=== PATIENT | female | born 1965 | race African-American/Black ===

== ENCOUNTER 2017-09-22 23:01 | Emergency (ER) | payer MEDICAID ==
--- NOTE | 2017-09-23 00:46 | ER Document Report ---
ED General - General Chief Complaint: Shortness Of Breath Stated Complaint: ITCHING Time Seen by Provider: 09/23/17 00:45 Notes: Patient is a 51-year-old female presents with complaint of itching. She has been itching all over now for several days. She has hives that have been ongoing. She had this happen once before received a shot of medication which eventually stopped her itching. This occurred many years ago. She also has a bit of chest tightness. No chest pain. No throat swelling. No tongue swelling. No recent fevers or infections. No recent changes in soaps or deodorants. No recent changes in laundry detergent. No recent new foods. No new medications. - Related Data Allergies/Adverse Reactions: tramadol Allergy (Verified 09/23/17 02:36) Past Medical History - Social History Smoking Status: Unknown if Ever Smoked Frequency of alcohol use: None Drug Abuse: None Family History: Reviewed & Not Pertinent Review of Systems - Review of Systems Notes: My Normal Review Basic REVIEW OF SYSTEMS: CONSTITUTIONAL : Denies fever, chills, or sweats. Denies recent illness. EENT: Denies eye, ear, throat, or mouth pain or symptoms. Denies nasal or sinus congestion. CARDIOVASCULAR: Denies chest pain. Some chest tightness RESPIRATORY: Denies cough, cold, or chest congestion. Denies shortness of breath, difficulty breathing, or wheezing. GASTROINTESTINAL: Denies abdominal pain. Denies nausea, vomiting, or diarrhea. Denies constipation. Last BM: GENITOURINARY: Denies difficulty urinating, painful urination, burning, frequency, or blood in urine. FEMALE GENITOURINARY: Denies vaginal bleeding, abnormal or irregular periods. LMP: MUSCULOSKELETAL: Denies neck or back pain or joint pain or swelling. SKIN: Intermittent hives NEUROLOGICAL: Denies altered mental status or loss of consciousness. Denies headache. Denies weakness or paralysis or loss of use of either side. Denies problems with gait or speech. Denies sensory or motor loss. ALL OTHER SYSTEMS REVIEWED AND NEGATIVE. Physical Exam - Vital signs Vitals: Resp BP Pulse Ox 14 144/94 H 98 09/23/17 00:55 09/23/17 00:55 09/23/17 00:55 - Notes Notes: General Appearance: Well nourished, alert, cooperative, no acute distress, no obvious discomfort. Vitals: reviewed, See vital signs table. Head: no swelling or tenderness to the head Eyes: PERRL, EOMI, Conjuctiva clear Mouth: No decreasd moisture. No glossal swelling. Throat: No tonsillar inflammation, No airway obstruction, No lymphadenopathy Neck: Supple, no neck tenderness, No neck swelling Lungs: No wheezing, No rales, No rhonci, No accessory muscle use, good air exchange bilaterally. Heart: Normal rate, Regular rythm, No murmur, no rub Abdomen: Normal BS, soft, No rigidity, No abdominal tenderness, No guarding, no rebound, no abdominal masses, no organomegaly Extremities: strength 5/5 in all extremities, good pulses in all extremities, no swelling or tenderness in the extremities, no edema. Skin: She does have a few area of hives-like rash that are on the upper extremities as well as some over upper chest. Neuro: speech clear, oriented x 3, normal affect, responds appropriately to questions. Course - Re-evaluation Re-evalutation: 09/23/17 02:47 Patient is received Solu-Medrol and Pepcid. Cardiac workup is negative. Patient says she still has some itching. Is now more than 6 hours since her last home dose of Benadryl and therefore we will give her some Benadryl IV to see if we can improve her itching. 09/23/17 06:16 She will did help her itching. She still had slight itching but it is much improved. Cardiac enzymes are negative. I suspect over chest tightness she had was related to allergic reaction. She does not have any wheezing. She looks well. For that she is safe to be discharged home. I will place her on prednisone. She does have history of diabetes but it is mild and well- controlled metformin. Her blood sugar is currently 120 and therefore will not add any insulin to her regimen. I informed her that she does need to keep a close eye on her blood sugars at the start routinely being above 350 then she needs to return to ER for reevaluation. Patient agrees with plan and she will be discharged home. Patient to return to ER if she has difficulty breathing, difficulty swallowing, or if she has worsening of her rash or reaction. Dictation of this chart was performed using voice recognition software; therefore, there may be some unintended grammatical errors. - Vital Signs Vital signs: Temp Pulse Resp BP Pulse Ox 97.7 F 77 23 H 135/75 H 98 09/23/17 03:40 09/23/17 00:56 09/23/17 03:01 09/23/17 03:01 09/23/17 01:01 - Laboratory Result Diagrams: 09/23/17 01:17 09/23/17 01:17 Laboratory results interpreted by me: 09/23/17 09/23/17 01:17 01:17 Hgb 11.3 L Hct 35.5 L MCV 78 L MCH 25.0 L MCHC 31.9 L RDW 17.5 H Glucose 122 H - EKG Interpretation by Me Additional EKG results interpreted by me: 09/23/17 00:45 EKG is reviewed and interpreted by me. EKG shows sinus rhythm with rate of [address] segment elevation or depression. No ischemic T-wave inversions. [place] interval, QRS duration, QTc intervals are within normal range. No old EKG available for comparison. Discharge - Discharge Clinical Impression: Hives Condition: Good Disposition: HOME, SELF-CARE Additional Instructions: Please take the prednisone and Pepcid as prescribed. Please take 25 to 50mg of benadryl every 6 hours for itching. please follow up with your doctor on sunday. please return to the ER if you develop blood sugar above 350. Prescriptions: Famotidine [Pepcid 20 mg Tablet] 20 mg PO BID #12 tablet Prednisone 10 mg PO ASDIR #18 tablet
[2017-09-23] MEDS ORDERED: METHYLPREDNISOLONE INJ 125 MG/2 ML SDV IV ONE (01:04)
[2017-09-23] MEDS ORDERED: FAMOTIDINE INJ/PF 20 MG/2 ML SDV IV ONE (01:04)
[2017-09-23 01:58] LABS: ABSOLUTE LYMPHOCYTES (AUTO) 1.4 10^3/uL (0.5-4.7); ABSOLUTE MONOCYTES (AUTO) 0.4 10^3/uL (0.1-1.4); ABSOLUTE NEUT (AUTO) 3.6 10^3/uL (1.7-8.2); BASOPHILS % (AUTO) 0.2 % (0-2); EOSINOPHILS % (AUTO) 0.8 % (0-6); HEMATOCRIT 35.5 % (36.0-47.0); HEMOGLOBIN 11.3 g/dL (12.0-15.5); LYMPHOCYTES % (AUTO) 26.1 % (13-45); MEAN CORPUSCULAR HGB CONC 31.9 g/dL (32.0-36.0); MEAN CORPUSCULAR VOLUME 78 fl (80-97); MONOCYTES % (AUTO) 7.6 % (3-13); PLATELET COUNT 317 10^3/uL (150-450); RED BLOOD COUNT 4.54 10^6/uL (3.72-5.28); RED CELL DISTRIBUTION WIDTH 17.5 % (11.5-14.0); SEGMENTED NEUTROPHILS % (AUTO) 65.3 % (42-78); TOTAL CELLS COUNTED % (AUTO) 100 %; WHITE BLOOD COUNT 5.5 10^3/uL (4.0-10.5)
[2017-09-23 02:21] LABS: ALANINE AMINOTRANSFERASE 22 U/L (9-52); ALBUMIN 3.9 g/dL (3.5-5.0); ALKALINE PHOSPHATASE 77 U/L (38-126); ANION GAP 13 (5-19); ASPARTATE AMINO TRANSFERASE 20 U/L (14-36); BILIRUBIN,DIRECT 0.2 mg/dL (0.0-0.4); BILIRUBIN,TOTAL 0.5 mg/dL (0.2-1.3); BLOOD UREA NITROGEN 13 mg/dL (7-20); CALCIUM 9.1 mg/dL (8.4-10.2); CARBON DIOXIDE 23 mmol/L (22-30); CHLORIDE 104 mmol/L (98-107); GLUCOSE 122 mg/dL (75-110); SODIUM 139.6 mmol/L (137-145); TOTAL PROTEIN 7.2 g/dL (6.3-8.2)
[2017-09-23] MEDS ORDERED: DIPHENHYDRAMINE HCL 50 MG/ML VIAL IV ONE (02:47)
[2017-09-23 03:22] VITALS: BP 135/75
--- NOTE | 2017-09-23 10:01 | EKG REPORT ---
SEVERITY:- BORDERLINE ECG - SINUS RHYTHM CONSIDER ANTERIOR INFARCT BORDERLINE T ABNORMALITIES, ANTERIOR LEADS : Confirmed by: Balwinder Hunter 23-Sep-2017 10:00:59
== END 2017-09-23 03:48 | disposition home or self-care (01) ==
LOC: ER 23:01
DX: L50.9 Urticaria, unspecified (principal); R07.89 Other chest pain; E11.9 Type 2 diabetes mellitus without complications; Z79.84 Long term (current) use of oral hypoglycemic drugs; Z88.5 Allergy status to narcotic agent
CPT/HCPCS: 93005; 99285; 96374; 96375; 36415; 85025; 80053; 84484; 93010; J1200; J2930; S0028

== ENCOUNTER 2019-02-07 19:44 | Emergency (ER) | payer MEDICAID ==
[2019-02-07 20:35] LABS: ABSOLUTE BASOPHILS # (AUTO) 0.1 10^3/uL (0.0-0.2); ABSOLUTE LYMPHOCYTES (AUTO) 1.8 10^3/uL (0.5-4.7); ABSOLUTE MONOCYTES (AUTO) 0.8 10^3/uL (0.1-1.4); ABSOLUTE NEUT (AUTO) 7.3 10^3/uL (1.7-8.2); BASOPHILS % (AUTO) 0.7 % (0-2); EOSINOPHILS % (AUTO) 0.3 % (0-6); HEMATOCRIT 27.8 % (36.0-47.0); HEMOGLOBIN 9.1 g/dL (12.0-15.5); LYMPHOCYTES % (AUTO) 17.7 % (13-45); MEAN CORPUSCULAR HEMOGLOBIN 25.3 pg (27.0-33.4); MEAN CORPUSCULAR HGB CONC 32.8 g/dL (32.0-36.0); MEAN CORPUSCULAR VOLUME 77 fl (80-97); MONOCYTES % (AUTO) 8.4 % (3-13); PLATELET COUNT 289 10^3/uL (150-450); RED CELL DISTRIBUTION WIDTH 17.6 % (11.5-14.0); SEGMENTED NEUTROPHILS % (AUTO) 72.9 % (42-78); TOTAL CELLS COUNTED % (AUTO) 100 %
[2019-02-07] MEDS ORDERED: NORMAL SALINE 1000 ML 1,000 ML IV ONE (20:37)
--- NOTE | 2019-02-07 20:42 | ER Document Report ---
ED Medical Screen (RME) - General Chief Complaint: Syncope Stated Complaint: LOW BLOOD PRESSURE/PASSED OUT Time Seen by Provider: 02/07/19 20:28 Primary Care Provider: VANESSA GARCIA FNP [Primary Care Provider] - Follow up as needed Information source: Patient Notes: Patient presents after a syncopal episode that occurred around 630. Patient states she felt hot had lower pelvic cramping nausea and vomiting x2 episodes. Patient states that she is on her menstrual cycle and has heavy irregular menses. Patient denies any chest pain or dyspnea. Patient denies any headache pain. hx: Hypertension, dyslipidemia, anxiety, back pain, RA, diabetes I have greeted and performed a rapid initial assessment of this patient. A comprehensive ED assessment and evaluation of the patient, analysis of test results and completion of the medical decision making process will be conducted by additional ED providers. - Related Data Allergies/Adverse Reactions: tramadol Allergy (Verified 09/23/17 02:36) Past Medical History - Social History Frequency of alcohol use: Occasional Drug Abuse: Marijuana, Prescription drugs - Past Medical History Cardiac Medical History: Reports: Hx Hypercholesterolemia, Hx Hypertension Endocrine Medical History: Reports: Hx Diabetes Mellitus Type 2 Renal/ Medical History: Denies: Hx Peritoneal Dialysis Musculoskeltal Medical History: Reports Hx Arthritis Past Surgical History: Reports: Hx Section Physical Exam - Vital signs Vitals: Temp Pulse Resp BP Pulse Ox 98.4 F 70 19 93/45 L 100 02/07/19 19:49 02/07/19 19:49 02/07/19 19:49 02/07/19 19:49 02/07/19 19:49 - Cardiovascular Rhythm: Regular. No: Tachycardia Heart sounds: S1 appreciated, S2 appreciated - Abdominal Tenderness: Tender - Lower pelvic tenderness Course - Vital Signs Vital signs: Temp Pulse Resp BP Pulse Ox 98.4 F 70 19 93/45 L 100 02/07/19 19:49 02/07/19 19:49 02/07/19 19:49 02/07/19 19:49 02/07/19 19:49 - Laboratory Result Diagrams: 02/07/19 20:20 02/07/19 20:20 Laboratory results interpreted by me: 02/07/19 20:20 RBC 3.60 L Hgb 9.1 L Hct 27.8 L MCV 77 L MCH 25.3 L RDW 17.6 H Doctor's Discharge - Discharge Referrals: VANESSA GARCIA, CIVIL CELEBRANT [Primary Care Provider] - Follow up as needed
[2019-02-07 20:59] LABS: ALBUMIN 3.7 g/dL (3.5-5.0); ALKALINE PHOSPHATASE 57 U/L (38-126); ANION GAP 11 (5-19); ASPARTATE AMINO TRANSFERASE 17 U/L (14-36); BILIRUBIN,DIRECT 0.2 mg/dL (0.0-0.4); BILIRUBIN,TOTAL 0.3 mg/dL (0.2-1.3); BLOOD UREA NITROGEN 16 mg/dL (7-20); CALCIUM 9.7 mg/dL (8.4-10.2); CARBON DIOXIDE 29 mmol/L (22-30); CHLORIDE 100 mmol/L (98-107); CREATINE KINASE 97 U/L (30-135); GLUCOSE 100 mg/dL (75-110); POTASSIUM 3.9 mmol/L (3.6-5.0); TOTAL PROTEIN 6.9 g/dL (6.3-8.2)
[2019-02-07 21:10] LABS: CREATINE KINASE MB 1.07 ng/mL (<4.55)
[2019-02-07 21:11] LABS: TROPONIN I < 0.012 ng/mL
--- NOTE | 2019-02-07 22:37 | RADIOLOGY REPORT (SQ) ---
EXAM DESCRIPTION: US PELVIS TRANSVAGINAL COMPLETED DATE/TME: 02/07/2019 20:38 CLINICAL HISTORY: 53 years, Female, pelvic pain, heavy bleeding COMPARISON: None. TECHNIQUE: Axial 2-D grayscale images of the pelvis were acquired. Doppler was utilized. LIMITATIONS: None. FINDINGS: Uterus measures 10.2 x 7.1 x 6.6 cm in size. It contains multiple hypoechoic masses with posterior acoustic shadowing, the largest of which are as follows: 2.8 x 2.4 x 2.5 cm fibroid located within the anterior uterine fundus, intramural in location 3.7 x 2.7 x 3.2 cm fibroid located within the posterior uterine fundus, intramural in location 2.2 x 2.3 x 2.4 cm fibroid located within the anterior fundus, intramural in location. Endometrial stripe thickness measures 15 mm. Cervix is closed, measuring 3.1 cm in length. Right ovary measures 2.6 x 1.9 x 1.4 cm in size. It demonstrates normal echogenicity and normal low resistance arterial waveforms. Left ovary measures 3.1 x 1.4 x 1.3 cm in size. It demonstrates normal echogenicity and normal low resistance arterial waveforms. No significant free fluid is identified within the pelvis. IMPRESSION: Fibroid uterus. Thickened endometrial stripe. Correlate for postmenopausal state. If the patient is postmenopausal, then further assessment with endometrial soft tissue sampling is recommended as differential considerations for this finding would include endometrial polyp, endometrial hyperplasia, or endometrial carcinoma. If the patient is not postmenopausal, then this could indicate a normal secretory endometrium. Normal sonographic appearance of the ovaries. copyright 2010 [employer]- All Rights Reserved
[2019-02-07 23:33] LABS: APPEARANCE,URINE CLOUDY; BILIRUBIN,URINE NEGATIVE (NEGATIVE); COLOR,URINE AMBER; GLUCOSE, URINE 50 mg/dL (NEGATIVE); KETONES,URINE NEGATIVE (NEGATIVE); LEUKOCYTE ESTERASE,URINE NEGATIVE (NEGATIVE); NITRITE,URINE NEGATIVE (NEGATIVE); PROTEIN,URINE 100 mg/dL (NEGATIVE); URINE SPECIFIC GRAVITY 1.019
--- NOTE | 2019-02-07 23:47 | ER Document Report ---
ED General - General Chief Complaint: Syncope Stated Complaint: LOW BLOOD PRESSURE/PASSED OUT Time Seen by Provider: 02/07/19 20:28 Primary Care Provider: SUNDAY TAVERAS MD [ACTIVE STAFF] - 02/10/19 Notes: Patient is a 53-year-old female that comes emergency department for chief complaint of lower abdominal cramping, vaginal bleeding, vomiting, and an episode of passing out. She states that she had been cramping, she threw up, she went into her bed, then she got up quickly off her bed to check on something, got lightheaded, and passed out back onto the bed. Reportedly she fell onto the bed and did not have any injuries. She denies chest pain, current abdominal pain, or any other current symptoms other than later vaginal bleeding than earlier. She has bled through 8 pads today, she has been bleeding every day recently. She states that she has a history of very irregular menstrual cycles and she thinks she still has menstrual cycles. Past medical history of type 2 diabetes, hypertension, hyperlipidemia, rheumatoid arthritis. She states she has not been evaluated for the vaginal bleeding at her age. - Related Data Allergies/Adverse Reactions: tramadol Allergy (Verified 09/23/17 02:36) Past Medical History - General Information source: Patient - Social History Smoking Status: Current Some Day Smoker Frequency of alcohol use: Occasional Drug Abuse: Marijuana, Prescription drugs Lives with: Family Family History: Reviewed & Not Pertinent Patient has suicidal ideation: No Patient has homicidal ideation: No - Past Medical History Cardiac Medical History: Reports: Hx Hypercholesterolemia, Hx Hypertension Endocrine Medical History: Reports: Hx Diabetes Mellitus Type 2 Renal/ Medical History: Denies: Hx Peritoneal Dialysis Musculoskeletal Medical History: Reports Hx Arthritis Past Surgical History: Reports: Hx Section Review of Systems - Review of Systems Constitutional: See HPI EENT: No symptoms reported Cardiovascular: See HPI Respiratory: No symptoms reported Gastrointestinal: No symptoms reported Genitourinary: No symptoms reported Female Genitourinary: See HPI Musculoskeletal: No symptoms reported Skin: No symptoms reported Hematologic/Lymphatic: No symptoms reported Neurological/Psychological: No symptoms reported Physical Exam - Vital signs Vitals: Temp Pulse Resp BP Pulse Ox 98.4 F 70 19 93/45 L 100 02/07/19 19:49 02/07/19 19:49 02/07/19 19:49 02/07/19 19:49 02/07/19 19:49 - Notes Notes: GENERAL: Alert, interacts well. No acute distress. HEAD: Normocephalic, atraumatic. EYES: Pupils equal, round, and reactive to light. Extraocular movements intact. ENT: Oral mucosa moist, tongue midline. Oropharynx unremarkable. Airway patent. NECK: Full range of motion. Supple. Trachea midline. LUNGS: Clear to auscultation bilaterally, no wheezes, rales, or rhonchi. No respiratory distress. HEART: Regular rate and rhythm. No murmur ABDOMEN: Soft, non-tender. Non-distended. EXTREMITIES: Moves all 4 extremities spontaneously. No edema, normal radial and dorsalis pedis pulses bilaterally. No cyanosis. BACK: no cervical, thoracic, lumbar midline tenderness. No saddle anesthesia, normal distal neurovascular exam. Moves all extremities in full range of motion. NEUROLOGICAL: Alert and oriented x3. Normal speech. Cranial nerves II through XII grossly intact. PSYCH: Normal affect, normal mood. SKIN: Warm, dry, normal turgor. No rashes or lesions noted. Course - Re-evaluation Re-evalutation: Patient has received IV fluids on my evaluation and her blood pressure is now normal. She has no current complaints. She states her bleeding almost stopped, she went to the bathroom, checked, and now she has almost completely stopped bleeding "like it is the end of the period cycle". Abdomen is soft and benign. Orthostatic vital signs checked and normal. CBC shows anemia with hemoglobin of 9.1. Remaining laboratory work-up unremarkable except for creatinine of 1.7 and patient is unsure of previous. Ultrasound showing fibroids, thickened endometrial lining which is concerning at patient's age. Discussed with patient, she does not currently have an TUFTING MACHINE OPERATOR. I will discuss with TUFTING MACHINE OPERATOR. Called and spoke with Dr. Taveras, she recommends Provera 20 mg daily (or 3 times daily patient is bleeding heavily but patient has essentially stopped at the moment), iron, and for patient to call the office on Sunday to be closely evaluated and managed. I discussed this with patient and family at length, they state appreciation and agreement. Stable at time of discharge, return precautions discussed at length. - Vital Signs Vital signs: Temp Pulse Resp BP Pulse Ox 98.4 F 77 14 121/66 100 02/07/19 19:49 02/08/19 00:58 02/08/19 01:16 02/08/19 01:16 02/08/19 01:16 - Laboratory Result Diagrams: 02/07/19 20:20 02/07/19 20:20 Laboratory results interpreted by me: 02/07/19 02/07/19 02/07/19 20:20 20:20 23:00 RBC 3.60 L Hgb 9.1 L Hct 27.8 L MCV 77 L MCH 25.3 L RDW 17.6 H Creatinine 1.71 H Est GFR ( Amer) 38 L Est GFR (MDRD) Non-Af 31 L Urine Protein 100 H Urine Glucose (UA) 50 H Urine Blood LARGE H Urine Urobilinogen 2.0 H - EKG Interpretation by Me Additional EKG results interpreted by me: EKG shows sinus rhythm at a rate of 70, PVC present, no overt T wave inversions or ST segment changes in consecutive leads, unfortunately artifact is present. QTC of 415. Discharge - Discharge Clinical Impression: Vaginal bleeding, Fibroid Episode of syncope Qualifiers: Syncope type: unspecified Qualified Code(s): R55 - Syncope and collapse Condition: Stable Disposition: HOME, SELF-CARE Additional Instructions: Your ultrasound indicates a thickened lining of the uterus and also fibroids. The thickened lining is concerning, I spoke with Dr. Taveras TUFTING MACHINE OPERATOR, it is very important that you call the office listed at 8 a.m. on Sunday morning to set up close follow-up and management. Recommendation is also that you take the Provera daily to reduce the bleeding and also take the iron to treat the anemia. You can take Tylenol or ibuprofen for cramping. Return if you worsen including heavy bleeding, passing out again, severe worsening pain, fever, or any other concerning symptoms. Prescriptions: Ferrous Sulfate [Iron] 325 mg PO TID #30 tablet Medroxyprogesterone Acet [Provera 10 Mg Tablet] 10 mg PO ASDIR 10 Days #20 tablet Referrals: SUNDAY TAVERAS MD [ACTIVE STAFF] - 02/10/19
[2019-02-08] MEDS ORDERED: MEDROXYPROGESTERONE ACET 10 MG TABLET PO ONE (01:14)
[2019-02-08 01:28] VITALS: BP 121/66
--- NOTE | 2019-02-08 09:30 | EKG REPORT ---
SEVERITY:- ABNORMAL ECG - SINUS RHYTHM CONSIDER ANTEROSEPTAL INFARCT BORDERLINE T ABNORMALITIES, DIFFUSE LEADS : Confirmed by: Balwinder Hunter 08-Feb-2019 09:28:45
== END 2019-02-08 01:36 | disposition home or self-care (01) ==
LOC: ER 19:44
DX: R55 Syncope and collapse (principal); D25.1 Intramural leiomyoma of uterus; N93.9 Abnormal uterine and vaginal bleeding, unspecified; D64.9 Anemia, unspecified; E11.9 Type 2 diabetes mellitus without complications; I10 Essential (primary) hypertension; F17.200 Nicotine dependence, unspecified, uncomplicated; F12.10 Cannabis abuse, uncomplicated; Z88.6 Allergy status to analgesic agent
CPT/HCPCS: 93005; 99284; 96360; 96361; 86900; 86901; 36415; 82553; 86850; 82550; 84703; 85025; 80053; 81001; 84484; 76830; 93976; 93010; J3490; J7030

== ENCOUNTER 2019-05-22 15:30 | Inpatient (IN) | payer MEDICARE, MEDICAID ==
[2019-05-22] MEDS ORDERED: NORMAL SALINE 1000 ML 1,000 ML IV ONE (15:50)
[2019-05-22] MEDS ORDERED: ACETAMINOPHEN SUSP 160 MG/5 ML ORAL SYRING PO ONE (15:50)
--- NOTE | 2019-05-22 15:52 | ER Document Report ---
ED General - General Chief Complaint: Abdominal Pain Stated Complaint: ABDOMINAL PAIN/HEADACHE Primary Care Provider: VANESSA GARCIA FNP [Primary Care Provider] - Follow up as needed Notes: Patient presents with lower abdominal pain chills and rapid breathing onset 1 hour prior to arrival. History of fibroids. Brought in by EMS with a heart rate of 130 and a lactic of 7. Did give fluids lactic came down to 3. She denies surgical history has been nauseous but not vomited has no diarrhea. - Related Data Allergies/Adverse Reactions: tramadol Allergy (Verified 09/23/17 02:36) Past Medical History - Social History Smoking Status: Never Smoker Family History: Reviewed & Not Pertinent - Past Medical History Cardiac Medical History: Reports: Hx Hypercholesterolemia, Hx Hypertension Endocrine Medical History: Reports: Hx Diabetes Mellitus Type 2 Renal/ Medical History: Denies: Hx Peritoneal Dialysis Musculoskeletal Medical History: Reports Hx Arthritis Past Surgical History: Reports: Hx Section Review of Systems - Review of Systems Notes: REVIEW OF SYSTEMS GEN: Fever subjective and for EMS ENT: Denies sore throat, nasal discharge, ear pain EYES: Denies blurry vision, eye pain, discharge CV: Denies chest pain, palpitations, edema RESP: Denies cough, shortness of breath, wheezing GI: Belly pain vomiting MSK: Denies joint pain/swelling, edema, SKIN: Denies rash, skin lesions LYMPH: Denies swollen glands/lymph nodes NEURO: Denies headache, focal weakness or numbness, dizziness PSYCH: Denies depression, suicidal or homicidal ideation PHYSICAL EXAMINATION General: No acute distress, well-nourished Head: Atraumatic, normocephalic ENT: Mouth normal, oropharynx moist, no exudates or tonsillar enlargement Eyes: Conjunctiva normal, pupils equal, lids normal Neck: No JVD, supple, no guarding CVS: Tachycardic,, regular rhythm, no murmurs Resp: No resp distress, equal and normal breath sounds bilaterally GI: Lower abdominal tenderness without guarding Ing Ext: No deformities, no edema, normal range of motion in upper and lower ext Back: No CVA or midline TTP Skin: No rash, warm Lymphatic: No lymphadeopathy noted Neuro: Awake, alert. Face symmetric. GCS 15. Physical Exam - Vital signs Vitals: Resp Pulse Ox 20 100 05/22/19 16:10 05/22/19 16:10 Course - Re-evaluation Re-evalutation: 05/22/19 18:15 Patient presents with sepsis by vital signs Most likely due to abdominal source Lactic is come down his resuscitation by EMS was begunI will continue this Cultures and lactic ordered. Rocephin Flagyl order to cover abdominal source. Will order UA urine culture abdominal CT Flu and COVID are still on the list as well Patient's CT shows nonperforated dactylitis, she has elevated white count with a left shift Antibiotic should cover this Resuscitation has improved her condition She was discussed with hospitalist Dr. Loya for admission to medical floor Please note that clinical decision making for this patient was made during the 2019 pandemic of novel coronavirus which caused a significant strain on the healthcare system including at this particular facility. Criteria for admission, discharge and level of care decisions as well as treatment decisions have necessarily changed. - Vital Signs Vital signs: Temp Pulse Resp BP Pulse Ox 99.6 F 23 H 137/85 H 100 05/22/19 17:30 05/22/19 17:01 05/22/19 17:01 05/22/19 17:01 - Laboratory Result Diagrams: 05/22/19 15:55 05/22/19 15:55 Laboratory results interpreted by me: 05/22/19 05/22/19 05/22/19 15:55 16:20 16:20 WBC 13.2 H Hgb 10.8 L Hct 32.7 L MCH 26.4 L RDW 20.5 H Seg Neuts % (Manual) 95 H Band Neutrophils % 1 L Lymphocytes % (Manual) 3 L Monocytes % (Manual) 1 L Abs Neuts (Manual) 12.7 H Abs Lymphs (Manual) 0.4 L VBG pH 7.48 H VBG pCO2 32.7 L Urine Protein 30 H Urine Blood LARGE H - Diagnostic Test Radiology reviewed: Image reviewed, Reports reviewed Critical Care Note - Critical Care Note Total time excluding time spent on procedures (mins): 35 - The above patient is critically ill. Not including procedures, but including direct re-evaluations, speaking with patient and/or consultants, interpreting results, and documenting, I spent the total amount of minute listed listed above on critical care time Comments: Insert critical care Discharge - Discharge Clinical Impression: Diverticulitis of colon without hemorrhage Condition: Good Disposition: ADMITTED INPATIENT Unit Admitted: Medical Floor Referrals: GARCIA,PAMMELA S, FLY FRAME TENDER [Primary Care Provider] - Follow up as needed
[2019-05-22] MEDS ORDERED: CEFTRIAXONE 1 GM/D5W RTU 1 GM/50 ML RTUPB IV SCH (16:00)
[2019-05-22 16:17] LABS: HEMATOCRIT 32.7 % (36.0-47.0); HEMOGLOBIN 10.8 g/dL (12.0-15.5); MEAN CORPUSCULAR HEMOGLOBIN 26.4 pg (27.0-33.4); MEAN CORPUSCULAR HGB CONC 33.1 g/dL (32.0-36.0); MEAN CORPUSCULAR VOLUME 80 fl (80-97); PLATELET COUNT 270 10^3/uL (150-450); RED BLOOD COUNT 4.11 10^6/uL (3.72-5.28); RED CELL DISTRIBUTION WIDTH 20.5 % (11.5-14.0); WHITE BLOOD COUNT 13.2 10^3/uL (4.0-10.5)
[2019-05-22] MEDS: METRONIDAZOLE 500 MG/NS RTU 500 MG/100 ML RTUPB IV SCH ×3 (16:26→23:53)
[2019-05-22 16:28] LABS: INTERNATIONAL RATION (INR) 1.05; PROTHROMBIN TIME 13.7 SEC (11.4-15.4)
[2019-05-22 16:29] LABS: ALBUMIN 4.1 g/dL (3.5-5.0); ALKALINE PHOSPHATASE 82 U/L (38-126); ANION GAP 8 (5-19); ASPARTATE AMINO TRANSFERASE 20 U/L (14-36); BILIRUBIN,DIRECT 0.2 mg/dL (0.0-0.4); BILIRUBIN,TOTAL 0.7 mg/dL (0.2-1.3); BLOOD UREA NITROGEN 11 mg/dL (7-20); CALCIUM 9.3 mg/dL (8.4-10.2); CARBON DIOXIDE 26 mmol/L (22-30); CHLORIDE 104 mmol/L (98-107); GLUCOSE 101 mg/dL (75-110); POTASSIUM 4.1 mmol/L (3.6-5.0); TOTAL PROTEIN 7.7 g/dL (6.3-8.2)
[2019-05-22 16:33] LABS: VENOUS BLOOD BASE EXCESS 0.6 mmol/L; VENOUS BLOOD HCO3 23.6 mmol/L (20-32); VENOUS BLOOD PCO2 32.7 mmHg (35-63); VENOUS BLOOD PH 7.48 (7.30-7.42)
[2019-05-22 16:42] LABS: ABSOLUTE LYMPHOCYTES# (MANUAL) 0.4 10^3/uL (0.5-4.7); ABSOLUTE MONOCYTES # (MANUAL) 0.1 10^3/uL (0.1-1.4); BAND NEUTROPHILS % (MANUAL) 1 % (3-5); BASOPHILS % (MANUAL) 0 % (0-2); EOSINOPHILS % (MANUAL) 0 % (0-6); LYMPHOCYTES % (MANUAL) 3 % (13-45); MONOCYTES % (MANUAL) 1 % (3-13); SEGMENTED NEUTROPHILS % (MAN) 95 % (42-78); TOTAL CELLS COUNTED 100
[2019-05-22 16:43] LABS: ANISOCYTOSIS 2+
[2019-05-22 16:44] LABS: PLATELET COMMENT ADEQUATE; TOXIC VACUOLATION PRESENT
[2019-05-22 16:51] LABS: APPEARANCE,URINE SLIGHTLY-CLOUDY; BILIRUBIN,URINE NEGATIVE (NEGATIVE); COLOR,URINE YELLOW; GLUCOSE, URINE NEGATIVE (NEGATIVE); KETONES,URINE NEGATIVE (NEGATIVE); LEUKOCYTE ESTERASE,URINE NEGATIVE (NEGATIVE); NITRITE,URINE NEGATIVE (NEGATIVE); PROTEIN,URINE 30 mg/dL (NEGATIVE); URINE SPECIFIC GRAVITY 1.009; UROBILINOGEN,URINE NEGATIVE mg/dL (<2.0)
--- NOTE | 2019-05-22 17:56 | RADIOLOGY REPORT (SQ) ---
EXAM DESCRIPTION: CT ABD/PELVIS WITH IV ONLY IMAGES COMPLETED DATE/TIME: 05/22/2019 5:35 pm REASON FOR STUDY: abd ain sepsis COMPARISON: None. TECHNIQUE: CT scan of the abdomen and pelvis performed using helical scanning technique with dynamic intravenous contrast injection. No oral contrast. Images reviewed with lung, soft tissue, and bone windows. Reconstructed coronal and sagittal MPR images reviewed. Delayed images for evaluation of the urinary system also acquired. All images stored on PACS. All CT scanners at this facility use dose modulation, iterative reconstruction, and/or weight based d osing when appropriate to reduce radiation dose to as low as reasonably achievable (ALARA). [facility]: Dose Right [facility]: CareDose [facility]: Dose Right [facility]: Teradose 4D [facility]: Yashi CONTRAST TYPE AND DOSE: contrast/concentration: Isovue 350.00 mg/ml; Total Contrast Delivered: 97.0 ml; Total Saline Delivered: 61.0 ml RENAL FUNCTION: Creatinine 0.82 RADIATION DOSE: CT Rad equipment meets quality standard of care and radiation dose reduction techniq ues were employed. CTDIvol: 18.2 - 20.9 mGy. DLP: 2398 mGy-cm.. LIMITATIONS: None. FINDINGS: LOWER CHEST: No significant findings. No nodules or infiltrates. LIVER: Normal size. No masses. No dilated ducts. SPLEEN: Normal size. No focal lesions. PANCREAS: No masses. No significant calcifications. No adjacent inflammation or peripancreatic fluid collections. Pancreatic duct not dilated. GALLBLADDER: No identified stones by CT criteria. No inflammatory changes to suggest cholecystitis. ADRENAL GLANDS: No significant masses or asymmetry. RIGHT KIDNEY AND URETER: No solid masses. No significant calcifications. No hydronephrosis or hyd roureter. LEFT KIDNEY AND URETER: No solid masses. No significant calcifications. No hydronephrosis or hydr oureter. AORTA AND VESSELS: No aneurysm. No dissection. Renal arteries, SMA, celiac without stenosis. Scatter ed atherosclerosis. RETROPERITONEUM: No retroperitoneal adenopathy, hemorrhage or masses. BOWEL AND PERITONEAL CAVITY: Scattered colonic diverticula. Questionable mild perisigmoid stranding. No focal collection. No extraluminal gas. APPENDIX: Normal. PELVIS: Enlarged heterogeneous uterus likely secondary to leiomyomas. Unremarkable urinary bladder. No free fluid or adenopathy. ABDOMINAL WALL: No masses. No hernias. BONES: No acute bony abnormality. No suspicious osseous lesions. OTHER: No other significant finding. IMPRESSION: 1. Scattered colonic diverticula with mild perisigmoid stranding, suggestive of mild un complicated acute diverticulitis. 2. Otherwise, no other evidence of acute intra-abdominal/pelvic process. TECHNICAL DOCUMENTATION: JOB ID: [id number] Quality ID # [id number]: Final reports with documentation of one or more dose reduction techniques (e.g., Au tomated exposure control, adjustment of the mA and/or kV according to patient size, use of iterative reconstruction technique) 2010 [employer]- All Rights Reserved Reading location - IP/workstation name: [email or web address]
[2019-05-22 18:44] LABS: A TYPE INFLUENZA AG NEGATIVE (NEGATIVE); B INFLUENZA AG NEGATIVE (NEGATIVE)
[2019-05-22] MEDS ORDERED: MAG HYDROX/AL HYDROX/SIMETH SUSP 30 ML UDCUP PO PRN (19:14)
[2019-05-22] MEDS ORDERED: PROMETHAZINE HCL INJ 25 MG/1 ML VIAL IV PRN (19:14)
--- NOTE | 2019-05-22 19:14 | PDOC H&P ---
History of Present Illness Admission Date/PCP: SHY THORNTON Patient complains of: Abdominal pain vaginal bleeding History of Present Illness: SHORTY PALACIOS is a 53 year old female with history of hypertension, diabetes and anxiety. She also has arthritis in the right hip and has been told she has rheumatoid arthritis. She reports a pinched nerve in her back as well. She states that since January she has been having vaginal bleeding. This started with crampy abdominal discomfort. She was seeing Dr. Bandar Palacios. He had tried her on Provera to stem the bleeding. She states that she was down to 1 tablet for 14 days and then 14 days with no medication. She reports that the bleeding has returned. She presented to the emergency department with abdominal pain. CT scan showed sigmoid diverticulitis without perforation. She does have a slightly elevated white blood cell count. Temperature was only 99.6. Pulse and blood pressure were normal. She exhibits no increased work of breathing and her lactic acid is normal at 2.1. She has no evidence of acute organ failure. The patient be admitted to the hospital service. We will place her on IV antibiotics. She will be on clear liquids initially. I have consulted Dr. Aye Suresh from gynecology for helpful input on the vaginal bleeding. Past Medical History Cardiac Medical History: Reports: Hyperlipidema, Hypertension Endocrine Medical History: Reports: Diabetes Mellitus Type 2 Musculoskeltal Medical History: Reports: Arthritis Psychiatric Medical History: Reports: General Anxiety Disorder Psychiatric History Note: Severe anxiety Hematology: Reports: Anemia Past Surgical History Past Surgical History: Reports: Section, Other - Salpingectomy Social History Information Source: Patient Lives with: Family Smoking Status: Never Smoker Electronic Cigarette use?: No Frequency of Alcohol Use: None Hx Recreational Drug Use: Yes Drugs: Marijuana Hx Prescription Drug Abuse: No - Advance Directive Resuscitation Status: Full Code Family History Family History: Reviewed & Not Pertinent, CAD, DM, Hypertension Parental Family History Reviewed: Yes Children Family History Reviewed: Yes Sibling(s) Family History Reviewed.: Yes Medication/Allergy Home Medications: Aspirin [Ecotrin 81 mg EC Tablet] 81 mg PO DAILY 05/22/19 Bupropion HCl [Bupropion HCl Sr] 150 mg PO BID 05/22/19 Cilostazol [Pletal 100 mg Tablet] 100 mg PO BID 05/22/19 Gabapentin [Neurontin 300 mg Capsule] 300 mg PO Q8 05/22/19 Ibuprofen [Motrin 800 mg Tablet] 800 mg PO BIDP PRN 05/22/19 Lisinopril [Zestril] 40 mg PO DAILY 05/22/19 Medroxyprogesterone Acet [Provera 10 mg Tablet] 10 mg PO DAILY 05/22/19 Nebivolol HCl [Bystolic 5 mg Tablet] 5 mg PO DAILY 05/22/19 Oxycodone HCl/Acetaminophen [Percocet 10-325 mg Tablet] 1 tab PO Q6HP PRN 05/22/19 Rosuvastatin Calcium [Crestor] 40 mg PO QHS 05/22/19 Allergies/Adverse Reactions: tramadol Allergy (Verified 09/23/17 02:36) Review of Systems All systems: reviewed and no additional remarkable complaints except as stated Constitutional: PRESENT: fatigue Gastrointestinal: PRESENT: abdominal pain Genitourinary: PRESENT: other - Vaginal bleeding Musculoskeletal: PRESENT: back pain, other - Right hip pain Psychiatric: PRESENT: anxiety Physical Exam Vital Signs: Temp Pulse Resp BP Pulse Ox 99.6 F 23 H 137/85 H 100 05/22/19 17:30 05/22/19 17:01 05/22/19 17:01 05/22/19 17:01 Intake & Output 05/21/19 05/22/19 05/23/19 06:59 06:59 06:59 Intake Total 1150 Balance 1150 Weight 110.8 kg General appearance: PRESENT: cooperative, well-developed, other - The patient is sobbing. She is extremely worried about being admitted to the hospital. She has severe anxiety to begin with. Head exam: PRESENT: atraumatic, normocephalic Eye exam: PRESENT: conjunctiva pink, EOMI. ABSENT: scleral icterus Ear exam: PRESENT: normal external ear exam. ABSENT: bleeding, drainage Mouth exam: PRESENT: moist, tongue midline Respiratory exam: PRESENT: clear to auscultation selene, symmetrical, unlabored. ABSENT: prolonged expiratory phas, rales, rhonchi, tachypnea Cardiovascular exam: PRESENT: RRR, +S1, +S2 GI/Abdominal exam: PRESENT: diminished bowel sounds, soft, tenderness - Left lower quadrant. ABSENT: distended, guarding Rectal exam: PRESENT: deferred Gentrourinary exam: ABSENT: indwelling catheter Extremities exam: PRESENT: full ROM. ABSENT: pedal edema Musculoskeletal exam: PRESENT: ambulatory, normal inspection. ABSENT: deformity Neurological exam: PRESENT: alert, awake, oriented to person, oriented to place, oriented to time, oriented to situation, CN II-XII grossly intact. ABSENT: a ltered, motor sensory deficit Psychiatric exam: PRESENT: anxious, other - Sobbing hysterically. ABSENT: agitated Focused psych exam: ABSENT: delusional, restlessness Skin exam: PRESENT: dry, normal color, warm. ABSENT: rash Results Laboratory Results: 05/22/19 15:55 05/22/19 15:55 05/22/19 05/22/19 05/22/19 15:55 15:55 15:55 WBC 13.2 H RBC 4.11 Hgb 10.8 L Hct 32.7 L MCV 80 MCH 26.4 L MCHC 33.1 RDW 20.5 H Plt Count 270 Seg Neutrophils % Not Reportable VBG pH VBG pCO2 VBG HCO3 VBG Base Excess Sodium 138.2 Potassium 4.1 Chloride 104 Carbon Dioxide 26 Anion Gap 8 BUN 11 Creatinine 0.82 Est GFR ( Amer) > 60 Glucose 101 Lactic Acid 2.1 Calcium 9.3 Total Bilirubin 0.7 AST 20 Alkaline Phosphatase 82 Total Protein 7.7 Albumin 4.1 Urine Color Urine Appearance Urine pH Ur Specific [place] Urine Protein Urine Glucose (UA) Urine Ketones Urine Blood Urine Nitrite Ur Leukocyte Esterase Urine WBC (Auto) Urine RBC (Auto) 05/22/19 05/22/19 16:20 16:20 WBC RBC Hgb Hct MCV MCH MCHC RDW Plt Count Seg Neutrophils % VBG pH 7.48 H VBG pCO2 32.7 L VBG HCO3 23.6 VBG Base Excess 0.6 Sodium Potassium Chloride Carbon Dioxide Anion Gap BUN Creatinine Est GFR ( Amer) Glucose Lactic Acid Calcium Total Bilirubin AST Alkaline Phosphatase Total Protein Albumin Urine Color YELLOW Urine Appearance SLIGHTLY-CLOUDY Urine pH 5.0 Ur Specific [place] 1.009 Urine Protein 30 H Urine Glucose (UA) NEGATIVE Urine Ketones NEGATIVE Urine Blood LARGE H Urine Nitrite NEGATIVE Ur Leukocyte Esterase NEGATIVE Urine WBC (Auto) 1 Urine RBC (Auto) 124 Impressions: Abdomen/Pelvis CT 05/22/19 15:50 IMPRESSION: 1. Scattered colonic diverticula with mild perisigmoid stranding, suggestive of mild uncomplicated acute diverticulitis. 2. Otherwise, no other evidence of acute intra-abdominal/pelvic process. Assessment and Plan - Diagnosis (1) Diverticulitis of colon without hemorrhage Is this a current diagnosis for this admission?: Yes Plan: May 22, [address] patient on clear liquids. Continue IV antibiotics. Monitor white blood cell count. Analgesia if needed. (2) Hypertension Qualifiers: Hypertension type: essential hypertension Qualified Code(s): I10 - Essential (primary) hypertension Is this a current diagnosis for this admission?: Yes Plan: May 22, 2019 Continue current antihypertensives. Will monitor blood pressure with serial vital signs. (3) Diabetes mellitus type 2 in obese Is this a current diagnosis for this admission?: Yes Plan: May 22, 2019 The patient will be on clear liquids. There were no oral diabetic agents on her medication list. We will maintain a diabetic diet and perform Accu-Cheks with sliding scale coverage. (4) Severe anxiety Is this a current diagnosis for this admission?: Yes Plan: May 22, 2019 Continue Wellbutrin (5) Menorrhagia Qualifiers: Menorrhagia type: with regular cycle Qualified Code(s): N92.0 - Excessive and frequent menstruation with regular cycle Is this a current diagnosis for this admission?: Yes Plan: May 22, 2019 The patient is on aspirin, Pletal and as needed ibuprofen. The certainly is not helping the bleeding. She may have a history of atherosclerotic disease that she just is not reporting at this time because she is overwhelmed with being hospitalized. I will hold the aspirin, Pletal and ibuprofen for now. She will be seen by gynecology. If she does have atherosclerotic disease then she will need to be back on antiplatelet agents. This may affect the decision tree to treat her vaginal bleeding. - Time Time Spent with patient: 35 or more minutes Medications reviewed and adjusted accordingly: Yes - Inpatient Certification Based on my medical assessment, after consideration of the patient's comorbidities, presenting symptoms, or acuity I expect that the services needed warrant INPATIENT care.: Yes I certify that my determination is in accordance with my understanding of Medicare's requirements for reasonable and necessary INPATIENT services [42 CFR 412.3e].: Yes Medical Necessity: Need For IV Fluids, Need for Pain Control, Need for IV Antibiotics Post Hospital Care: D/C Gastroenterology Physician Documentation
[2019-05-22] MEDS ORDERED: LORAZEPAM 0.5 MG TABLET PO PRN (19:21)
[2019-05-22] MEDS ORDERED: (PENDING PHARMACY ID) (Oxycodone Hcl/Acetaminophen [Percocet 10-325 Mg Tablet] 1 TAB) PO PRN (19:21)
[2019-05-22] MEDS ORDERED: OXYCODONE-ACETAMINOPHEN 5-325 MG TABLET PO PRN (19:26)
[2019-05-22] MEDS: MEDROXYPROGESTERONE ACET 10 MG TABLET PO SCH (21:05)
[2019-05-22] MEDS: NORMAL SALINE 1000 ML 1,000 ML IV PRN (21:34)
[2019-05-22] MEDS: TRAZODONE HCL 50 MG TABLET PO PRN (21:49)
[2019-05-22] MEDS: FAMOTIDINE 20 MG TABLET PO SCH (21:49)
[2019-05-22] MEDS: ATORVASTATIN CALCIUM 80 MG TABLET PO SCH (21:49)
[2019-05-22] MEDS: BUPROPION HCL 100 MG TABLET PO SCH (21:49)
[2019-05-22] MEDS: GABAPENTIN 300 MG CAPSULE PO SCH (21:50)
[2019-05-22] MEDS ORDERED: (PENDING PHARMACY ID) (Rosuvastatin Calcium [Crestor] 40 MG) PO SCH (22:00)
[2019-05-22] MEDS ORDERED: CIPROFLOXACIN 400 MG/D5W RTU 400 MG/200 ML RTUPB IV SCH (22:00)
[2019-05-22] MEDS: ACETAMINOPHEN 325 MG TABLET PO PRN (23:57)
[2019-05-23] MEDS ORDERED: DEXTROSE 40% GEL 15 GM TUBE X 2 PO PRN (00:30)
[2019-05-23] MEDS ORDERED: GLUCAGON,HUMAN RECOMB 1 MG INJ IM PRN (00:30)
[2019-05-23] MEDS ORDERED: DEXTROSE 40% GEL 15 GM TUBE PO PRN (00:30)
[2019-05-23] MEDS ORDERED: DEXTROSE 50%-WATER SYRINGE 12.5 GM/25 ML DOSE IV PRN (00:30)
[2019-05-23] MEDS ORDERED: DEXTROSE 50%-WATER SYRINGE 25 GM/50 ML DOSE IV PRN (00:30)
[2019-05-23 05:05] LABS: ABSOLUTE MONOCYTES (AUTO) 0.7 10^3/uL (0.1-1.4); ABSOLUTE NEUT (AUTO) 12.3 10^3/uL (1.7-8.2); BASOPHILS % (AUTO) 0.3 % (0-2); EOSINOPHILS % (AUTO) 0.1 % (0-6); HEMATOCRIT 28.5 % (36.0-47.0); HEMOGLOBIN 9.5 g/dL (12.0-15.5); LYMPHOCYTES % (AUTO) 7.3 % (13-45); MEAN CORPUSCULAR HEMOGLOBIN 26.6 pg (27.0-33.4); MEAN CORPUSCULAR HGB CONC 33.4 g/dL (32.0-36.0); MEAN CORPUSCULAR VOLUME 80 fl (80-97); MONOCYTES % (AUTO) 4.9 % (3-13); PLATELET COUNT 204 10^3/uL (150-450); RED BLOOD COUNT 3.58 10^6/uL (3.72-5.28); RED CELL DISTRIBUTION WIDTH 20.2 % (11.5-14.0); SEGMENTED NEUTROPHILS % (AUTO) 87.4 % (42-78); TOTAL CELLS COUNTED % (AUTO) 100 %; WHITE BLOOD COUNT 14.1 10^3/uL (4.0-10.5)
[2019-05-23 05:18] LABS: ANION GAP 5 (5-19); BLOOD UREA NITROGEN 7 mg/dL (7-20); CALCIUM 8.8 mg/dL (8.4-10.2); CARBON DIOXIDE 27 mmol/L (22-30); CHLORIDE 108 mmol/L (98-107); CHOLESTEROL 107.31 mg/dL (0-200); GLUCOSE 118 mg/dL (75-110); TRIGLYCERIDES 99 mg/dL (<150)
[2019-05-23 05:29] LABS: DIRECT LDL 61 mg/dL (<100)
[2019-05-23] MEDS: BUPROPION HCL 100 MG TABLET PO SCH ×3 (06:08→21:03)
[2019-05-23] MEDS: GABAPENTIN 300 MG CAPSULE PO SCH ×3 (06:08→21:03)
[2019-05-23] MEDS: METRONIDAZOLE 500 MG/NS RTU 500 MG/100 ML RTUPB IV SCH (06:08)
[2019-05-23] MEDS: NORMAL SALINE 1000 ML 1,000 ML IV PRN ×2 (06:11→14:38)
[2019-05-23] MEDS: INSULIN REG, HUMAN 100 UNIT/ML 3 ML VIAL (PYX) SUBCUT SCH ×4 (07:33→21:29)
[2019-05-23] MEDS: DOCUSATE SODIUM 100 MG CAPSULE PO SCH ×2 (10:38→18:22)
[2019-05-23] MEDS: MEDROXYPROGESTERONE ACET 10 MG TABLET PO SCH ×3 (10:55→18:23)
[2019-05-23] MEDS: CIPROFLOXACIN HCL 500 MG TABLET PO SCH ×2 (10:55→21:03)
[2019-05-23] MEDS: FAMOTIDINE 20 MG TABLET PO SCH ×2 (10:55→21:03)
[2019-05-23] MEDS: NEBIVOLOL HCL 5 MG TABLET PO SCH (10:55)
--- NOTE | 2019-05-23 11:20 | PDOC CONSULTATION ---
Consultation Consult Date: 05/23/19 Provider Consulted: VEL MUÑOZ History of Present Illness Admission Date/PCP: 05/22/19 19:37 SHY THORNTON Patient complains of: vaginal bleeding History of Present Illness: SHORTY PALACIOS is a 53 year old female well known to our practice. Pt is follwed by Dr. Palacios and has had an endometrial biopsy(negative) and a negative pap. Our current treatment is oral provera to help with the bleeding until she can be seen in our office for possible ablation or other therapy. Past Medical History Cardiac Medical History: Reports: Hyperlipidema, Hypertension Endocrine Medical History: Reports: Diabetes Mellitus Type 2 Musculoskeltal Medical History: Reports: Arthritis Psychiatric Medical History: Reports: General Anxiety Disorder Social History Lives with: Family Smoking Status: Never Smoker Electronic Cigarette use?: No Frequency of Alcohol Use: None Hx Recreational Drug Use: Yes Drugs: Marijuana Hx Prescription Drug Abuse: No - Advance Directive Resuscitation Status: Full Code Family History Family History: None, Reviewed & Not Pertinent, CAD, DM, Hypertension Parental Family History Reviewed: No Children Family History Reviewed: Unknown Sibling(s) Family History Reviewed.: Unknown Medication/Allergy Home Medications: Aspirin [Ecotrin 81 mg EC Tablet] 81 mg PO DAILY 05/22/19 Bupropion HCl [Bupropion HCl Sr] 150 mg PO BID 05/22/19 Cilostazol [Pletal 100 mg Tablet] 100 mg PO BID 05/22/19 Gabapentin [Neurontin 300 mg Capsule] 300 mg PO Q8 05/22/19 Ibuprofen [Motrin 800 mg Tablet] 800 mg PO BIDP PRN 05/22/19 Lisinopril [Zestril] 40 mg PO DAILY 05/22/19 Medroxyprogesterone Acet [Provera 10 mg Tablet] 10 mg PO DAILY 05/22/19 Nebivolol HCl [Bystolic 5 mg Tablet] 5 mg PO DAILY 05/22/19 Oxycodone HCl/Acetaminophen [Percocet 10-325 mg Tablet] 1 tab PO Q6HP PRN 05/22/19 Rosuvastatin Calcium [Crestor] 40 mg PO QHS 05/22/19 Allergies/Adverse Reactions: tramadol Allergy (Verified 09/23/17 02:36) Physical Exam - Physical Exam Vital Signs: Temp Pulse Resp BP Pulse Ox 99.7 F 80 13 129/54 H 100 05/23/19 08:12 04/03/20 08:12 05/23/19 08:12 05/23/19 08:12 05/23/19 08:12 Intake & Output 05/22/19 05/23/19 05/24/19 06:59 06:59 06:59 Intake Total 2450 100 Balance 2450 100 Weight 110.9 kg Result Laboratory Results: 05/23/19 04:37 05/23/19 04:37 05/22/19 05/22/19 05/22/19 15:55 15:55 15:55 WBC 13.2 H RBC 4.11 Hgb 10.8 L Hct 32.7 L MCV 80 MCH 26.4 L MCHC 33.1 RDW 20.5 H Plt Count 270 Seg Neutrophils % Not Reportable VBG pH VBG pCO2 VBG HCO3 VBG Base Excess Sodium 138.2 Potassium 4.1 Chloride 104 Carbon Dioxide 26 Anion Gap 8 BUN 11 Creatinine 0.82 Est GFR ( Amer) > 60 Glucose 101 Lactic Acid 2.1 Calcium 9.3 Magnesium Total Bilirubin 0.7 AST 20 Alkaline Phosphatase 82 Total Protein 7.7 Albumin 4.1 Triglycerides Cholesterol LDL Cholesterol Direct VLDL Cholesterol HDL Cholesterol Urine Color Urine Appearance Urine pH Ur Specific [place] Urine Protein Urine Glucose (UA) Urine Ketones Urine Blood Urine Nitrite Ur Leukocyte Esterase Urine WBC (Auto) Urine RBC (Auto) 05/22/19 05/22/19 05/22/19 16:20 16:20 20:25 WBC RBC Hgb Hct MCV MCH MCHC RDW Plt Count Seg Neutrophils % VBG pH 7.48 H VBG pCO2 32.7 L VBG HCO3 23.6 VBG Base Excess 0.6 Sodium Potassium Chloride Carbon Dioxide Anion Gap BUN Creatinine Est GFR ( Amer) Glucose Lactic Acid 1.2 Calcium Magnesium Total Bilirubin AST Alkaline Phosphatase Total Protein Albumin Triglycerides Cholesterol LDL Cholesterol Direct VLDL Cholesterol HDL Cholesterol Urine Color YELLOW Urine Appearance SLIGHTLY-CLOUDY Urine pH 5.0 Ur Specific [place] 1.009 Urine Protein 30 H Urine Glucose (UA) NEGATIVE Urine Ketones NEGATIVE Urine Blood LARGE H Urine Nitrite NEGATIVE Ur Leukocyte Esterase NEGATIVE Urine WBC (Auto) 1 Urine RBC (Auto) 124 05/22/19 05/23/19 05/23/19 23:30 04:37 04:37 WBC 14.1 H RBC 3.58 L Hgb 9.5 L Hct 28.5 L MCV 80 MCH 26.6 L MCHC 33.4 RDW 20.2 H Plt Count 204 Seg Neutrophils % 87.4 H VBG pH VBG pCO2 VBG HCO3 VBG Base Excess Sodium 140.3 Potassium 4.0 Chloride 108 H Carbon Dioxide 27 Anion Gap 5 BUN 7 Creatinine 0.76 Est GFR ( Amer) > 60 Glucose 118 H Lactic Acid 2.6 H Calcium 8.8 Magnesium 1.6 Total Bilirubin AST Alkaline Phosphatase Total Protein Albumin Triglycerides 99 Cholesterol 107.31 LDL Cholesterol Direct 61 VLDL Cholesterol 20.0 HDL Cholesterol 35 L Urine Color Urine Appearance Urine pH Ur Specific [place] Urine Protein Urine Glucose (UA) Urine Ketones Urine Blood Urine Nitrite Ur Leukocyte Esterase Urine WBC (Auto) Urine RBC (Auto) Impressions: Abdomen/Pelvis CT 05/22/19 15:50 IMPRESSION: 1. Scattered colonic diverticula with mild perisigmoid stranding, suggestive of mild uncomplicated acute diverticulitis. 2. Otherwise, no other evidence of acute intra-abdominal/pelvic process. Assessment & Plan - Diagnosis (1) Menorrhagia Qualifiers: Menorrhagia type: premenopausal Qualified Code(s): N92.4 - Excessive bleeding in the premenopausal period Is this a current diagnosis for this admission?: Yes - Time Time Spent: 30 to 50 Minutes Medications reviewed and adjusted accordingly: Yes Anticipated discharge: Other - Plan Summary Plan Summary: continue provera and may increase dose as needed. follow up in our office with Dr. Palacios on discharge
[2019-05-23] MEDS: METRONIDAZOLE 500 MG TABLET PO SCH ×2 (13:19→21:03)
[2019-05-23] MEDS ORDERED: HYDRALAZINE HCL INJ/PF 20 MG/1 ML SDV IV PRN (14:26)
[2019-05-23] MEDS ORDERED: LISINOPRIL 10 MG TABLET PO ONE (14:30)
--- NOTE | 2019-05-23 14:30 | PDOC PROGRESS REPORT ---
Subjective Progress Note for:: 05/23/19 Subjective:: SHORTY CHAPIN is a 53 year old female with history of hypertension, diabetes, anxiety, arthritis, and chronic vaginal bleeding followed by [facility] who was admitted 05/22/19 with abdominal discomfort and found to have diverticulitis. Patient was seen on morning rounds. She was found resting in bed, comfortably, on room air. She reports that she is feeling better today. She does continue to have generalized/vague abdominal discomfort, though she does state that this is improved and she has not required PRN medications. She has tolerated her clear liquid diet well this morning. She denies fever, chills, chest pain, palpitations, dyspnea, orthopnea, cough. She reports that she had a normal bowel movement this morning. She has no questions or concerns at this time. No concerns per nursing. Reason For Visit: DIVERTICULITIS,VAGINAL BLEEDING,HYPERTENSION, Physical Exam Vital Signs: Temp Pulse Resp BP Pulse Ox 99.0 F 66 18 157/75 H 100 05/23/19 12:44 05/23/19 13:58 05/23/19 12:44 05/23/19 12:44 05/23/19 12:44 Intake & Output 05/22/19 05/23/19 05/24/19 06:59 06:59 06:59 Intake Total 2450 650 Balance 2450 650 Weight 110.9 kg 110.9 kg General appearance: PRESENT: no acute distress, cooperative, morbidly obese, well-developed, well-nourished Head exam: PRESENT: atraumatic, normocephalic Eye exam: PRESENT: conjunctiva pink, EOMI, PERRLA. ABSENT: scleral icterus Mouth exam: PRESENT: moist, tongue midline Respiratory exam: PRESENT: clear to auscultation selene, symmetrical, unlabored. ABSENT: rales, rhonchi, wheezes Cardiovascular exam: PRESENT: RRR, +S1, +S2. ABSENT: diastolic murmur, rubs, systolic murmur Pulses: PRESENT: normal dorsalis pedis pul Vascular exam: PRESENT: normal capillary refill GI/Abdominal exam: PRESENT: normal bowel sounds, soft. ABSENT: distended, guarding, mass, organolmegaly, rebound, tenderness Rectal exam: PRESENT: deferred Extremities exam: PRESENT: full ROM. ABSENT: calf tenderness, clubbing, pedal edema Musculoskeletal exam: PRESENT: ambulatory Neurological exam: PRESENT: alert, awake, oriented to person, oriented to place, oriented to time, oriented to situation, CN II-XII grossly intact. ABSENT: motor sensory deficit Psychiatric exam: PRESENT: appropriate affect, normal mood. ABSENT: homicidal ideation, suicidal ideation Skin exam: PRESENT: dry, intact, warm. ABSENT: cyanosis, rash Results Laboratory Results: 05/23/19 04:37 05/23/19 04:37 05/22/19 05/22/19 05/22/19 15:55 15:55 15:55 WBC 13.2 H RBC 4.11 Hgb 10.8 L Hct 32.7 L MCV 80 MCH 26.4 L MCHC 33.1 RDW 20.5 H Plt Count 270 Seg Neutrophils % Not Reportable VBG pH VBG pCO2 VBG HCO3 VBG Base Excess Sodium 138.2 Potassium 4.1 Chloride 104 Carbon Dioxide 26 Anion Gap 8 BUN 11 Creatinine 0.82 Est GFR ( Amer) > 60 Glucose 101 Lactic Acid 2.1 Calcium 9.3 Magnesium Total Bilirubin 0.7 AST 20 Alkaline Phosphatase 82 Total Protein 7.7 Albumin 4.1 Triglycerides Cholesterol LDL Cholesterol Direct VLDL Cholesterol HDL Cholesterol Urine Color Urine Appearance Urine pH Ur Specific [place] Urine Protein Urine Glucose (UA) Urine Ketones Urine Blood Urine Nitrite Ur Leukocyte Esterase Urine WBC (Auto) Urine RBC (Auto) 05/22/19 05/22/19 05/22/19 16:20 16:20 20:25 WBC RBC Hgb Hct MCV MCH MCHC RDW Plt Count Seg Neutrophils % VBG pH 7.48 H VBG pCO2 32.7 L VBG HCO3 23.6 VBG Base Excess 0.6 Sodium Potassium Chloride Carbon Dioxide Anion Gap BUN Creatinine Est GFR ( Amer) Glucose Lactic Acid 1.2 Calcium Magnesium Total Bilirubin AST Alkaline Phosphatase Total Protein Albumin Triglycerides Cholesterol LDL Cholesterol Direct VLDL Cholesterol HDL Cholesterol Urine Color YELLOW Urine Appearance SLIGHTLY-CLOUDY Urine pH 5.0 Ur Specific [place] 1.009 Urine Protein 30 H Urine Glucose (UA) NEGATIVE Urine Ketones NEGATIVE Urine Blood LARGE H Urine Nitrite NEGATIVE Ur Leukocyte Esterase NEGATIVE Urine WBC (Auto) 1 Urine RBC (Auto) 124 05/22/19 05/23/19 05/23/19 23:30 04:37 04:37 WBC 14.1 H RBC 3.58 L Hgb 9.5 L Hct 28.5 L MCV 80 MCH 26.6 L MCHC 33.4 RDW 20.2 H Plt Count 204 Seg Neutrophils % 87.4 H VBG pH VBG pCO2 VBG HCO3 VBG Base Excess Sodium 140.3 Potassium 4.0 Chloride 108 H Carbon Dioxide 27 Anion Gap 5 BUN 7 Creatinine 0.76 Est GFR ( Amer) > 60 Glucose 118 H Lactic Acid 2.6 H Calcium 8.8 Magnesium 1.6 Total Bilirubin AST Alkaline Phosphatase Total Protein Albumin Triglycerides 99 Cholesterol 107.31 LDL Cholesterol Direct 61 VLDL Cholesterol 20.0 HDL Cholesterol 35 L Urine Color Urine Appearance Urine pH Ur Specific [place] Urine Protein Urine Glucose (UA) Urine Ketones Urine Blood Urine Nitrite Ur Leukocyte Esterase Urine WBC (Auto) Urine RBC (Auto) Impressions: Abdomen/Pelvis CT 05/22/19 15:50 IMPRESSION: 1. Scattered colonic diverticula with mild perisigmoid stranding, suggestive of mild uncomplicated acute diverticulitis. 2. Otherwise, no other evidence of acute intra-abdominal/pelvic process. Assessment and Plan - Diagnosis (1) Diverticulitis of colon without hemorrhage Is this a current diagnosis for this admission?: Yes Plan: Clinically improved. White count has trended up slightly from 13.2->14.1. However, patient remains afebrile (T-max 99.7 last 24 hours) with resolution of her abdominal discomfort and nausea. Now tolerating clear liquid diet. Patient reports nml bm this morning. Patient is admitted to the medical floor. Blood cultures are pending. She was empirically placed on IV Cipro and Flagyl. We will transition to oral Cipro and Flagyl. Advance to a brat diet. Continue IVF at O Continue analgesics and antiemetics as needed. (2) Menorrhagia Qualifiers: Menorrhagia type: premenopausal Qualified Code(s): N92.4 - Excessive bleeding in the premenopausal period Is this a current diagnosis for this admission?: Yes Plan: Aspirin, Pletal, and as needed ibuprofen are placed on hold. She is unable to recall a detailed history regarding arthrosclerosis to warrant Pletal. Gynecology has been consulted; have reviewed Dr. Zafar's note. Continues on Provera 10 mg PO TID. Follow up with [facility] as an outpatient following discharge. (3) Hypertension Qualifiers: Hypertension type: essential hypertension Qualified Code(s): I10 - Ess ential (primary) hypertension Is this a current diagnosis for this admission?: Yes Plan: Mildly elevated today. Resume home dose lisinopril. Continue home dose Bystolic. As needed IV Hydralazine for BP control. Cardiac/Brat diet. (4) Diabetes mellitus type 2 in obese Is this a current diagnosis for this admission?: Yes Plan: A1c is 5.6%. It does not appear that the patient is on home medication; likely diet controlled. Patient is advanced to a consistent carb/brat diet today. Accu-Cheks before meals and at bedtime with Humalog for sliding scale coverage. Hypoglycemia protocol in place. (5) Severe anxiety Is this a current diagnosis for this admission?: Yes Plan: Stable and without exacerbation at this time. Continue Wellbutrin
[2019-05-23] MEDS ORDERED: PROMETHAZINE HCL INJ 25 MG/1 ML VIAL IV PRN (15:00)
--- NOTE | 2019-05-23 16:54 | EKG REPORT ---
SEVERITY:- BORDERLINE ECG - SINUS RHYTHM BORDERLINE LEFT AXIS DEVIATION BORDERLINE T ABNORMALITIES, DIFFUSE LEADS : Confirmed by: Balwinder Hunter 23-May-2019 16:52:44
[2019-05-23] MEDS: ACETAMINOPHEN 325 MG TABLET PO PRN (17:25)
[2019-05-23] MEDS: ATORVASTATIN CALCIUM 80 MG TABLET PO SCH (21:03)
[2019-05-23] MEDS: TRAZODONE HCL 50 MG TABLET PO PRN (21:03)
[2019-05-24 05:20] LABS: ABSOLUTE LYMPHOCYTES (AUTO) 1.1 10^3/uL (0.5-4.7); ABSOLUTE MONOCYTES (AUTO) 0.8 10^3/uL (0.1-1.4); ABSOLUTE NEUT (AUTO) 4.6 10^3/uL (1.7-8.2); BASOPHILS % (AUTO) 0.5 % (0-2); EOSINOPHILS % (AUTO) 0.5 % (0-6); HEMATOCRIT 28.9 % (36.0-47.0); HEMOGLOBIN 9.7 g/dL (12.0-15.5); MEAN CORPUSCULAR HEMOGLOBIN 26.7 pg (27.0-33.4); MEAN CORPUSCULAR HGB CONC 33.7 g/dL (32.0-36.0); MEAN CORPUSCULAR VOLUME 79 fl (80-97); MONOCYTES % (AUTO) 11.7 % (3-13); PLATELET COUNT 210 10^3/uL (150-450); RED BLOOD COUNT 3.64 10^6/uL (3.72-5.28); RED CELL DISTRIBUTION WIDTH 20.4 % (11.5-14.0); SEGMENTED NEUTROPHILS % (AUTO) 70.3 % (42-78); TOTAL CELLS COUNTED % (AUTO) 100 %; WHITE BLOOD COUNT 6.6 10^3/uL (4.0-10.5)
[2019-05-24 05:45] LABS: ANION GAP 5 (5-19); BLOOD UREA NITROGEN 5 mg/dL (7-20); CALCIUM 8.9 mg/dL (8.4-10.2); CARBON DIOXIDE 25 mmol/L (22-30); CHLORIDE 109 mmol/L (98-107); GLUCOSE 120 mg/dL (75-110); POTASSIUM 3.7 mmol/L (3.6-5.0)
[2019-05-24] MEDS: METRONIDAZOLE 500 MG TABLET PO SCH ×2 (05:54→13:16)
[2019-05-24] MEDS: GABAPENTIN 300 MG CAPSULE PO SCH ×2 (05:54→13:16)
[2019-05-24] MEDS: BUPROPION HCL 100 MG TABLET PO SCH ×2 (05:54→13:16)
[2019-05-24] MEDS: INSULIN REG, HUMAN 100 UNIT/ML 3 ML VIAL (PYX) SUBCUT SCH ×2 (09:14→11:23)
[2019-05-24] MEDS: FAMOTIDINE 20 MG TABLET PO SCH (09:30)
[2019-05-24] MEDS: NEBIVOLOL HCL 5 MG TABLET PO SCH (09:30)
[2019-05-24] MEDS: CIPROFLOXACIN HCL 500 MG TABLET PO SCH (09:30)
[2019-05-24] MEDS: MEDROXYPROGESTERONE ACET 10 MG TABLET PO SCH ×2 (09:30→13:16)
[2019-05-24] MEDS: DOCUSATE SODIUM 100 MG CAPSULE PO SCH (09:30)
[2019-05-24] MEDS: NORMAL SALINE 1000 ML 1,000 ML IV PRN (09:33)
[2019-05-24] MEDS ORDERED: LISINOPRIL 10 MG TABLET PO SCH (10:00)
[2019-05-24] MEDS ORDERED: (PENDING PHARMACY ID) (Lisinopril [Zestril] 40 MG) PO SCH (10:00)
--- NOTE | 2019-05-24 11:51 | PDOC PROGRESS REPORT ---
Subjective Progress Note for:: 05/24/19 Reason For Visit: DIVERTICULITIS,VAGINAL BLEEDING,HYPERTENSION, 05/24/2019 Patient was admitted 2 days ago for abdominal pain and diverticulitis Physical Exam Vital Signs: Temp Pulse Resp BP Pulse Ox 98.0 F 71 16 128/55 H 100 05/24/19 08:00 05/24/19 08:00 05/24/19 08:00 05/24/19 08:00 05/24/19 08:00 Intake & Output 05/23/19 05/24/19 05/25/19 06:59 06:59 06:59 Intake Total 2451974 Balance 2449 Weight 110.9 kg 110.9 kg General appearance: PRESENT: no acute distress Respiratory exam: PRESENT: clear to auscultation selene. ABSENT: rales, rhonchi, wheezes Cardiovascular exam: PRESENT: RRR. ABSENT: diastolic murmur, rubs, systolic murmur GI/Abdominal exam: PRESENT: normal bowel sounds, soft. ABSENT: distended, guarding, mass, organolmegaly, rebound, tenderness Neurological exam: PRESENT: alert, awake, oriented to person, oriented to place, oriented to time, oriented to situation, CN II-XII grossly intact. ABSENT: motor sensory deficit Psychiatric exam: PRESENT: appropriate affect, normal mood. ABSENT: homicidal ideation, suicidal ideation Results Laboratory Results: 05/24/19 04:55 05/24/19 04:55 05/24/19 05/24/19 04:55 04:55 WBC 6.6 RBC 3.64 L Hgb 9.7 L Hct 28.9 L MCV 79 L MCH 26.7 L MCHC 33.7 RDW 20.4 H Plt Count 210 Seg Neutrophils % 70.3 Sodium 139.1 Potassium 3.7 Chloride 109 H Carbon Dioxide 25 Anion Gap 5 BUN 5 L Creatinine 0.78 Est GFR ( Amer) > 60 Glucose 120 H Calcium 8.9 Impressions: Abdomen/Pelvis CT 05/22/19 15:50 IMPRESSION: 1. Scattered colonic diverticula with mild perisigmoid stranding, suggestive of mild uncomplicated acute diverticulitis. 2. Otherwise, no other evidence of acute intra-abdominal/pelvic process. Assessment and Plan - Diagnosis (1) Abdominal pain Is this a current diagnosis for this admission?: Yes (2) Diabetes mellitus type 2 in obese Is this a current diagnosis for this admission?: Yes (3) Diverticulitis of colon without hemorrhage Is this a current diagnosis for this admission?: Yes (4) Hypertension Qualifiers: Hypertension type: essential hypertension Qualified Code(s): I10 - Essential (primary) hypertension Is this a current diagnosis for this admission?: Yes (5) Menorrhagia Qualifiers: Menorrhagia type: premenopausal Qualified Code(s): N92.4 - Excessive bleeding in the premenopausal period Is this a current diagnosis for this admission?: Yes (6) Severe anxiety Is this a current diagnosis for this admission?: Yes - Plan Summary Summary: 05/24/2019 Patient was switched over to p.o. antibiotics yesterday and placed on a brat diet. She has tolerated that well. She states she had a bowel movement yesterday but no BM today. Patient states that her vaginal bleeding is now just spotting Patient's blood pressure 128/55 temperature 98, pulse 71 White blood cell count is normal 6.6 hemoglobin is stable 9.7 blood cultures negative x24 hours I a.m. going to advance patient's diet, if she does well I will discharge her home on p.o. Cipro and Flagyl, in addition to her regular home medications. Follow-up with CAUSTIC OPERATOR as scheduled - Time Time Spent with patient: 25-34 minutes
[2019-05-24 12:48] VITALS: BP 146/81
--- NOTE | 2019-05-24 16:14 | PDOC DISCHARGE SUMMARY ---
Impression - Admit/DC Date/PCP Admission Date/Primary Care Provider: 05/22/19 19:37 SHY THORNTON Discharge Date: 05/24/19 - Discharge Diagnosis (1) Abdominal pain Is this a current diagnosis for this admission?: Yes (2) Diabetes mellitus type 2 in obese Is this a current diagnosis for this admission?: Yes (3) Diverticulitis of colon without hemorrhage Is this a current diagnosis for this admission?: Yes (4) Hypertension Is this a current diagnosis for this admission?: Yes (5) Menorrhagia Is this a current diagnosis for this admission?: Yes (6) Severe anxiety Is this a current diagnosis for this admission?: Yes - Assessment Summary: 05/24/2019 Patient was switched over to p.o. antibiotics yesterday and placed on a brat diet. She has tolerated that well. She states she had a bowel movement yesterday but no BM today. Patient states that her vaginal bleeding is now just spotting Patient's blood pressure 128/55 temperature 98, pulse 71 White blood cell count is normal 6.6 hemoglobin is stable 9.7 blood cultures negative x24 hours I a.m. going to advance patient's diet, if she does well I will discharge her home on p.o. Cipro and Flagyl, in addition to her regular home medications. Follow-up with LOSS CONTROL MANAGER as scheduled Patient tolerated a regular diet for lunch today and had no abdominal pain. Patient had a normal bowel movement yesterday, she was asking to go home therefore I discharge her home on p.o. Cipro and Flagyl, 10 more days. Told her to keep taking her oral Provera. She is to follow-up with LOSS CONTROL MANAGER as an outpatient Patient was actually admitted 2 days ago for abdominal pain, diverticulitis, vaginal bleeding which is an old problem. Patient was originally put on IV antibiotics and switch over to p.o.'s yesterday. Patient's chronic vaginal bleeding is going to be treated with oral Provera, which she was taking prior to admission. - Additional Information Resuscitation Status: Full Code Discharge Diet: Other (Comments) Discharge Activity: Activity As Tolerated, Balance Activity w/Rest, Weigh Daily Referrals: VANESSA GARCIA FNP [Primary Care Provider] - ASHVIN CHAPIN MD [ACTIVE STAFF] - (Earliest available appoitnment) Prescriptions: Ciprofloxacin HCl [Cipro 500 mg Tablet] 500 mg PO Q12 10 Days #20 tablet Trazodone HCl [Desyrel 50 mg Tablet] 50 mg PO QHS PRN 30 Days #30 tablet PRN Reason: Metronidazole [Flagyl 500 mg Tablet] 500 mg PO Q8 10 Days #30 tablet Home Medications: Aspirin [Ecotrin 81 mg EC Tablet] 81 mg PO DAILY 05/22/19 Bupropion HCl [Bupropion HCl Sr] 150 mg PO BID 05/22/19 Cilostazol [Pletal 100 mg Tablet] 100 mg PO BID 05/22/19 Gabapentin [Neurontin 300 mg Capsule] 300 mg PO Q8 05/22/19 Lisinopril [Zestril] 40 mg PO DAILY 05/22/19 Medroxyprogesterone Acet [Provera 10 mg Tablet] 10 mg PO DAILY 05/22/19 Nebivolol HCl [Bystolic 5 mg Tablet] 5 mg PO DAILY 05/22/19 Oxycodone HCl/Acetaminophen [Percocet 10-325 mg Tablet] 1 tab PO Q6HP PRN 05/22/19 Rosuvastatin Calcium [Crestor] 40 mg PO QHS 05/22/19 Acetaminophen [Tylenol 325 mg Tablet] 650 mg PO Q4HP PRN tablet 05/24/19 Ciprofloxacin HCl [Cipro 500 mg Tablet] 500 mg PO Q12 10 Days #20 tablet 05/24/19 Docusate Sodium [Colace 100 mg Capsule] 100 mg PO BID capsule 05/24/19 Famotidine [Pepcid 20 mg Tablet] 20 mg PO Q12 tablet 05/24/19 Metronidazole [Flagyl 500 mg Tablet] 500 mg PO Q8 10 Days #30 tablet 05/24/19 Trazodone HCl [Desyrel 50 mg Tablet] 50 mg PO QHS PRN 30 Days #30 tablet 05/24/19 History of Present Illiness History of Present Illness: SHORTY CHAPIN is a 53 year old female Physical Exam Vital Signs: Temp Pulse Resp BP Pulse Ox 98.4 F 60 16 146/81 H 100 05/24/19 13:54 05/24/19 14:00 05/24/19 13:54 05/24/19 13:54 05/24/19 13:54 Intake & Output 05/23/19 05/24/19 05/25/19 06:59 06:59 06:59 Intake Total 2450 1975 1346 Balance 2449 1974 1345 Weight 110.9 kg 110.9 kg Results Laboratory Results: WBC 6.6 10^3/uL (4.0-10.5) 05/24/19 04:55 RBC 3.64 10^6/uL (3.72-5.28) L 05/24/19 04:55 Hgb 9.7 g/dL (12.0-15.5) L 05/24/19 04:55 Hct 28.9 % (36.0-47.0) L 05/24/19 04:55 MCV 79 fl (80-97) L 05/24/19 04:55 MCH 26.7 pg (27.0-33.4) L 05/24/19 04:55 MCHC 33.7 g/dL (32.0-36.0) 05/24/19 04:55 RDW 20.4 % (11.5-14.0) H 05/24/19 04:55 Plt Count 210 10^3/uL (150-450) 05/24/19 04:55 Lymph % (Auto) 17.0 % (13-45) 05/24/19 04:55 [place] % (Auto) 11.7 % (3-13) 05/24/19 04:55 Eos % (Auto) 0.5 % (0-6) 05/24/19 04:55 Baso % (Auto) 0.5 % (0-2) 05/24/19 04:55 Absolute Neuts (auto) 4.6 10^3/uL (1.7-8.2) 05/24/19 04:55 Absolute Lymphs (auto) 1.1 10^3/uL (0.5-4.7) 05/24/19 04:55 Absolute Monos (auto) 0.8 10^3/uL (0.1-1.4) 05/24/19 04:55 Absolute Eos (auto) 0.0 10^3/uL (0.0-0.6) 05/24/19 04:55 Absolute Basos (auto) 0.0 10^3/uL (0.0-0.2) 05/24/19 04:55 Total Counted 100 05/22/19 15:55 Seg Neutrophils % 70.3 % (42-78) 05/24/19 04:55 Seg Neuts % (Manual) 95 % (42-78) H 05/22/19 15:55 Band Neutrophils % 1 % (3-5) L 05/22/19 15:55 Lymphocytes % (Manual) 3 % (13-45) L 05/22/19 15:55 Monocytes % (Manual) 1 % (3-13) L 05/22/19 15:55 Eosinophils % (Manual) 0 % (0-6) 05/22/19 15:55 Basophils % (Manual) 0 % (0-2) 05/22/19 15:55 Abs Neuts (Manual) 12.7 10^3/uL (1.7-8.2) H 05/22/19 15:55 Abs Lymphs (Manual) 0.4 10^3/uL (0.5-4.7) L 05/22/19 15:55 Abs Monocytes (Manual) 0.1 10^3/uL (0.1-1.4) 05/22/19 15:55 Absolute Eos (Manual) 0.0 10^3/uL (0.0-0.6) 05/22/19 15:55 Abs Basophils (Manual) 0.0 10^3/uL (0.0-0.2) 05/22/19 15:55 Toxic Vacuolation PRESENT 05/22/19 15:55 Platelet Comment ADEQUATE 05/22/19 15:55 Anisocytosis 2+ 05/22/19 15:55 Microcytosis SLIGHT 05/22/19 15:55 PT 13.7 SEC (11.4-15.4) 05/22/19 15:55 INR 1.05 05/22/19 15:55 VBG pH 7.48 (7.30-7.42) H 05/22/19 16:20 VBG pCO2 32.7 mmHg (35-63) L 05/22/19 16:20 VBG HCO3 23.6 mmol/L (20-32) 05/22/19 16:20 VBG Base Excess 0.6 mmol/L 05/22/19 16:20 Sodium 139.1 mmol/L (137-145) 05/24/19 04:55 Potassium 3.7 mmol/L (3.6-5.0) 05/24/19 04:55 Chloride 109 mmol/L (98-107) H 05/24/19 04:55 Carbon Dioxide 25 mmol/L (22-30) 05/24/19 04:55 Anion Gap 5 (5-19) 05/24/19 04:55 BUN 5 mg/dL (7-20) L 05/24/19 04:55 Creatinine 0.78 mg/dL (0.52-1.25) 05/24/19 04:55 Est GFR ( Amer) > 60 (>60) 05/24/19 04:55 Est GFR (MDRD) Non-Af > 60 (>60) 05/24/19 04:55 Glucose 120 mg/dL (75-110) H 05/24/19 04:55 POC Glucose 121 mg/dL (70-110) H 05/24/19 10:38 Hemoglobin A1c % 5.6 % (4.7-6.0) 05/23/19 04:37 Lactic Acid 2.6 mmol/L (0.7-2.1) H 05/22/19 23:30 Calcium 8.9 mg/dL (8.4-10.2) 05/24/19 04:55 Magnesium 1.6 mg/dL (1.6-2.3) 05/23/19 04:37 Total Bilirubin 0.7 mg/dL (0.2-1.3) 05/22/19 15:55 Direct Bilirubin 0.2 mg/dL (0.0-0.4) 05/22/19 15:55 Neonat Total Bilirubin Not Reportable 05/22/19 15:55 Neonat Direct Bilirubin Not Reportable 05/22/19 15:55 Neonat Indirect Bili Not Reportable 05/22/19 15:55 AST 20 U/L (14-36) 05/22/19 15:55 ALT 13 U/L (<35) 05/22/19 15:55 Alkaline Phosphatase 82 U/L (38-126) 05/22/19 15:55 Total Protein 7.7 g/dL (6.3-8.2) 05/22/19 15:55 Albumin 4.1 g/dL (3.5-5.0) 05/22/19 15:55 Triglycerides 99 mg/dL (<150) 05/23/19 04:37 Cholesterol 107.31 mg/dL (0-200) 05/23/19 04:37 LDL Cholesterol Direct 61 mg/dL (<100) 05/23/19 04:37 VLDL Cholesterol 20.0 mg/dL (10-31) 05/23/19 04:37 HDL Cholesterol 35 mg/dL (>40) L 05/23/19 04:37 Urine Color YELLOW 05/22/19 16:20 Urine Appearance SLIGHTLY-CLOUDY 05/22/19 16:20 Urine pH 5.0 (5.0-9.0) 05/22/19 16:20 Ur Specific [place] 1.009 05/22/19 16:20 Urine Protein 30 mg/dL (NEGATIVE) H 05/22/19 16:20 Urine Glucose (UA) NEGATIVE mg/dL (NEGATIVE) 05/22/19 16:20 Urine Ketones NEGATIVE mg/dL (NEGATIVE) 05/22/19 16:20 Urine Blood LARGE (NEGATIVE) H 05/22/19 16:20 Urine Nitrite NEGATIVE (NEGATIVE) 05/22/19 16:20 Urine Bilirubin NEGATIVE (NEGATIVE) 05/22/19 16:20 Urine Urobilinogen NEGATIVE mg/dL (<2.0) 05/22/19 16:20 Ur Leukocyte Esterase NEGATIVE (NEGATIVE) 05/22/19 16:20 Urine WBC (Auto) 1 /HPF 05/22/19 16:20 Urine RBC (Auto) 124 /HPF 05/22/19 16:20 Urine Bacteria (Auto) TRACE /HPF 05/22/19 16:20 Squamous Epi Cells Auto 5 /HPF 05/22/19 16:20 Urine Mucus (Auto) RARE /LPF 05/22/19 16:20 Urine Ascorbic Acid NEGATIVE (NEGATIVE) 05/22/19 16:20 Influenza A (Rapid) NEGATIVE (NEGATIVE) 05/22/19 18:00 Influenza B (Rapid) NEGATIVE (NEGATIVE) 05/22/19 18:00 Impressions: Abdomen/Pelvis CT 05/22/19 15:50 IMPRESSION: 1. Scattered colonic diverticula with mild perisigmoid stranding, suggestive of mild uncomplicated acute diverticulitis. 2. Otherwise, no other evidence of acute intra-abdominal/pelvic process. Stroke Is this a Stroke Patient?: No Acute Heart Failure - Is this a Heart Failure Patient?: No
== END 2019-05-24 14:47 | disposition home or self-care (01) | DRG 392 ==
LOC: ER 15:30 → EH 19:37 → 4W 21:11 → 4N 05-23 17:00
PROVIDERS: ADMIT Hospitalist; ATTEND Registered Nurse
DX: K57.32 Diverticulitis of large intestine without perforation or abscess without bleeding (principal); E11.9 Type 2 diabetes mellitus without complications; I10 Essential (primary) hypertension; N92.4 Excessive bleeding in the premenopausal period; M19.90 Unspecified osteoarthritis, unspecified site; Z79.82 Long term (current) use of aspirin; Z79.899 Other long term (current) drug therapy; F41.1 Generalized anxiety disorder; E66.01 Morbid (severe) obesity due to excess calories
CPT/HCPCS: 36415; 74177; 80048; 80053; 80061; 81001; 82803; 82962; 83036; 83605; 83735; 85025; 85610; 87040; 87804; 93005; 93010; 96361; 96365; 96367; 99291; J0696; J0744; J3490; J7030

== ENCOUNTER 2019-06-07 22:40 | Emergency (ER) | payer MEDICARE, MEDICAID ==
--- NOTE | 2019-06-07 23:15 | ER Document Report ---
ED Medical Screen (RME) - General Chief Complaint: General Weakness Stated Complaint: GENERAL WEAKNESS, LOSS OF APPETITE Primary Care Provider: VANESSA GARCIA FNP [Primary Care Provider] - Follow up as needed Notes: Patient is a 53-year-old -[place] female with a history of anemia who used to take iron supplementation who was seen here and admitted for diverticulitis about a week and half ago and was placed on antibiotics upon cody jack who returns today with a chief complaint of generalized malaise and fatigue. She states she just generally feels weak and faint. Denies any other specific symptoms. She does add that at one point she had bleeding fibroids. She does not recall them being a ongoing problem. I have treated and performed a rapid initial assessment of this patient. A comprehensive ED assessment and evaluation of the patient, analysis of test results and completion of medical decision making process will be conducted by additional ED providers. PHYSICAL EXAMINATION: GENERAL: Well-appearing, well-nourished and in no acute distress. A&Ox4. Answers questions appropriately. - Related Data Allergies/Adverse Reactions: tramadol Allergy (Verified 09/23/17 02:36) Past Medical History - Past Medical History Cardiac Medical History: Reports: Hx Hypercholesterolemia, Hx Hypertension Endocrine Medical History: Reports: Hx Diabetes Mellitus Type 2 Renal/ Medical History: Denies: Hx Peritoneal Dialysis Musculoskeltal Medical History: Reports Hx Arthritis Past Surgical History: Reports: Hx Section, Other - Salpingectomy Physical Exam - Vital signs Vitals: Temp Pulse Resp BP Pulse Ox 98.7 F 73 14 145/87 H 100 06/07/19 22:48 06/07/19 22:48 06/07/19 22:48 06/07/19 22:48 06/07/19 22:48 Course - Vital Signs Vital signs: Temp Pulse Resp BP Pulse Ox 98.7 F 73 14 145/87 H 100 06/07/19 22:48 06/07/19 22:48 06/07/19 22:48 06/07/19 22:48 06/07/19 22:48 Doctor's Discharge - Discharge Referrals: VANESSA GARCIA FNP [Primary Care Provider] - Follow up as needed
--- NOTE | 2019-06-07 23:58 | ER Document Report ---
ED General - General Chief Complaint: General Weakness Stated Complaint: GENERAL WEAKNESS, LOSS OF APPETITE Time Seen by Provider: 06/07/19 23:57 Primary Care Provider: VANESSA GARCIA FNP [Primary Care Provider] - Follow up as needed Mode of Arrival: Ambulatory Information source: Patient Notes: alla notes Patient is a 53-year-old -[place] female with a history of anemia who used to take iron supplementation who was seen here and admitted for diverticul itis about a week and half ago and was placed on antibiotics upon discharge who returns today with a chief complaint of generalized malaise and fatigue. She states she just generally feels weak and faint. Denies any other specific symptoms. She does add that at one point she had bleeding fibroids. She does not recall them being a ongoing problem. my notes 53-year-old black female arrives with chief complaint of weakness. Patient was placed on Cipro and Flagyl upon discharge 21 May by Naomi Chavira hospitalist. Patient had been admitted because of anemia and diverticulitis on CT of abdomen pelvis. Patient at this time feels weak and fainty and generalized fatigue. Patient reports her symptoms began after taking the Cipro and Flagyl. She began to develop yellow diarrhea with crampy abdomen. She has never had C. difficile in the past - Related Data Allergies/Adverse Reactions: tramadol Allergy (Verified 09/23/17 02:36) Past Medical History - General Information source: Patient - Social History Smoking Status: Never Smoker Cigarette use (# per day): No Chew tobacco use (# tins/day): No Smoking Education Provided: No Frequency of alcohol use: None Drug Abuse: Marijuana Lives with: Family Family History: None, Reviewed & Not Pertinent, CAD, DM, Hypertension Patient has suicidal ideation: No Patient has homicidal ideation: No - Past Medical History Cardiac Medical History: Reports: Hx Hypercholesterolemia, Hx Hypertension Endocrine Medical History: Reports: Hx Diabetes Mellitus Type 2 Renal/ Medical History: Denies: Hx Peritoneal Dialysis Musculoskeletal Medical History: Reports Hx Arthritis Past Surgical History: Reports: Hx Section, Other - Salpingectomy Review of Systems - Review of Systems Constitutional: See HPI, Malaise, Weakness, Weight loss, Recent illness EENT: No symptoms reported Cardiovascular: No symptoms reported Respiratory: No symptoms reported Gastrointestinal: See HPI, Abdominal pain, Diarrhea Genitourinary: No symptoms reported Female Genitourinary: No symptoms reported Musculoskeletal: No symptoms reported Skin: No symptoms reported Hematologic/Lymphatic: No symptoms reported Neurological/Psychological: See HPI, Weakness Physical Exam - Vital signs Vitals: Temp Pulse Resp BP Pulse Ox 98.7 F 73 14 145/87 H 100 06/07/19 22:48 06/07/19 22:48 06/07/19 22:48 06/07/19 22:48 06/07/19 22:48 Interpretation: Hypertensive - General General appearance: Alert, Anxious - HEENT Head: Normocephalic, Atraumatic Eyes: Normal Pupils: PERRL Sinus: Normal Nasal: Normal Mouth/Lips: Normal Mucous membranes: Dry Pharynx: Normal Neck: Normal - Respiratory Respiratory status: No respiratory distress Chest status: Nontender Breath sounds: Normal Chest palpation: Normal - Cardiovascular Rhythm: Regular Heart sounds: Normal auscultation Murmur: No - Abdominal Inspection: Morbidly Obese Distension: No distension Bowel sounds: Hyperactive Tenderness: Tender - diffusely Organomegaly: No organomegaly - Genitourinary External exam: Normal - Back Back: Normal - Extremities General upper extremity: Normal inspection General lower extremity: Normal inspection - Neurological Neuro grossly intact: Yes Cognition: Normal Orientation: AAOx4 Bam Coma Scale Eye Opening: Spontaneous Bam Coma Scale Verbal: Oriented Bam Coma Scale Motor: Obeys Commands [place] Coma Scale Total: 15 Speech: Normal Motor strength normal: LUE, RUE, LLE, RLE Sensory: Normal - Psychological Associated symptoms: Normal affect - Skin Skin Temperature: Warm Skin Moisture: Dry Course - Vital Signs Vital signs: Temp Pulse Resp BP Pulse Ox 98.9 F 62 22 H 164/73 H 100 06/08/19 00:11 06/08/19 00:11 06/08/19 00:11 06/08/19 00:11 06/08/19 00:11 - Laboratory Result Diagrams: 06/08/19 00:15 06/08/19 00:15 Laboratory results interpreted by me: 06/08/19 06/08/19 00:15 00:15 Hgb 11.5 L Hct 34.3 L MCV 79 L MCH 26.4 L RDW 19.5 H Sodium 136.7 L Glucose 119 H Critical Care Note - Critical Care Note Total time excluding time spent on procedures (mins): 90 Discharge - Discharge Clinical Impression: Weakness, C. difficile diarrhea Diarrhea Qualifiers: Diarrhea type: unspecified type Qualified Code(s): R19.7 - Diarrhea, unspecified Condition: Good Disposition: HOME, SELF-CARE Additional Instructions: Try to consume brat diet that is bananas rice applesauce toast and try to avoid any meat or milk products; take medicines as directed encourage fluids and in the future try to take probiotic tablets when you take Cipro or Flagyl for your diverticulitis. Prescriptions: Lactobacillus Acidophilus/Pect [Acidophilus-Pectin Capsule] 1 each PO DAILY 14 Days #1 bottle Forms: Return to Work Referrals: VANESSA GARCIA MILL MANAGER [Primary Care Provider] - Follow up as needed
[2019-06-08] MEDS ORDERED: NORMAL SALINE 1000 ML 1,000 ML IV ONE (00:12)
[2019-06-08] MEDS ORDERED: LACTOBACILLUS ACIDOPHILUS 250 MG TAB PO ONE (00:13)
[2019-06-08 00:24] LABS: ABSOLUTE BASOPHILS # (AUTO) 0.1 10^3/uL (0.0-0.2); ABSOLUTE LYMPHOCYTES (AUTO) 2.1 10^3/uL (0.5-4.7); ABSOLUTE MONOCYTES (AUTO) 0.5 10^3/uL (0.1-1.4); ABSOLUTE NEUT (AUTO) 5.1 10^3/uL (1.7-8.2); EOSINOPHILS % (AUTO) 0.2 % (0-6); HEMATOCRIT 34.3 % (36.0-47.0); HEMOGLOBIN 11.5 g/dL (12.0-15.5); MEAN CORPUSCULAR HEMOGLOBIN 26.4 pg (27.0-33.4); MEAN CORPUSCULAR HGB CONC 33.5 g/dL (32.0-36.0); MEAN CORPUSCULAR VOLUME 79 fl (80-97); MONOCYTES % (AUTO) 6.8 % (3-13); PLATELET COUNT 388 10^3/uL (150-450); RED BLOOD COUNT 4.35 10^6/uL (3.72-5.28); RED CELL DISTRIBUTION WIDTH 19.5 % (11.5-14.0); TOTAL CELLS COUNTED % (AUTO) 100 %; WHITE BLOOD COUNT 7.8 10^3/uL (4.0-10.5)
[2019-06-08 00:41] LABS: ALBUMIN 4.5 g/dL (3.5-5.0); ALKALINE PHOSPHATASE 69 U/L (38-126); ANION GAP 9 (5-19); ASPARTATE AMINO TRANSFERASE 22 U/L (14-36); BILIRUBIN,TOTAL 0.9 mg/dL (0.2-1.3); BLOOD UREA NITROGEN 9 mg/dL (7-20); CARBON DIOXIDE 25 mmol/L (22-30); CHLORIDE 103 mmol/L (98-107); GLUCOSE 119 mg/dL (75-110); POTASSIUM 3.9 mmol/L (3.6-5.0)
[2019-06-08 02:33] VITALS: BP 164/73
[2019-06-08 02:43] LABS: APPEARANCE,URINE SLIGHTLY-CLOUDY; BILIRUBIN,URINE NEGATIVE (NEGATIVE); GLUCOSE, URINE NEGATIVE (NEGATIVE); KETONES,URINE NEGATIVE (NEGATIVE); LEUKOCYTE ESTERASE,URINE SMALL (NEGATIVE); NITRITE,URINE NEGATIVE (NEGATIVE); PROTEIN,URINE 30 mg/dL (NEGATIVE); URINE SPECIFIC GRAVITY 1.021; UROBILINOGEN,URINE NEGATIVE mg/dL (<2.0)
[2019-06-08 02:44] LABS: COLOR,URINE DARK YELLOW
[2019-06-08 03:35] LABS: C DIFFICILE GDH NEGATIVE (NEGATIVE)
== END 2019-06-08 02:32 | disposition home or self-care (01) ==
LOC: ER 22:40
DX: R53.1 Weakness (principal); A04.72 Enterocolitis due to Clostridium difficile, not specified as recurrent; D64.9 Anemia, unspecified; E78.00 Pure hypercholesterolemia, unspecified; I10 Essential (primary) hypertension; E11.9 Type 2 diabetes mellitus without complications
CPT/HCPCS: 99291; 99292; 96360; 36415; 82962; 85025; 80053; 81001; 87324; 87449; A9270; J7030